=== PATIENT | male | born 1975 | race Caucasian/White ===

== ENCOUNTER 2023-10-10 13:39 | Emergency (ER) | payer OTHER, BC, SELFPAY ==
--- NOTE | ~2023-10-10 | XR_ITS ---
EXAMINATION: XR SHOULDER, LEFT XR ELBOW, LEFT CLINICAL INFORMATION: Pain. COMPARISON: None. TECHNIQUE: AP, Grashey, scapular Y, and axillary views of the left shoulder. AP, oblique, and lateral views of the left elbow. FINDINGS: Left shoulder: No acute fracture or dislocation. No joint space narrowing or marginal osteophytes. No osseous erosion. No abnormal soft tissue calcification. Left elbow: No acute fracture or dislocation. No joint space narrowing or marginal osteophytes. No osseous erosion. No abnormal soft tissue calcification. No significant joint effusion. Posteromedial subcutaneous edema. XR/XR elbow LT min 3V IMPRESSION: LEFT SHOULDER: Unremarkable examination. LEFT ELBOW: No acute osseous abnormality. Posteromedial subcutaneous edema.
--- NOTE | ~2023-10-10 | XR_ITS ---
EXAMINATION: XR SHOULDER, LEFT XR ELBOW, LEFT CLINICAL INFORMATION: Pain. COMPARISON: None. TECHNIQUE: AP, Grashey, scapular Y, and axillary views of the left shoulder. AP, oblique, and lateral views of the left elbow. FINDINGS: Left shoulder: No acute fracture or dislocation. No joint space narrowing or marginal osteophytes. No osseous erosion. No abnormal soft tissue calcification. Left elbow: No acute fracture or dislocation. No joint space narrowing or marginal osteophytes. No osseous erosion. No abnormal soft tissue calcification. No significant joint effusion. Posteromedial subcutaneous edema. XR/XR shoulder LT min 2V IMPRESSION: LEFT SHOULDER: Unremarkable examination. LEFT ELBOW: No acute osseous abnormality. Posteromedial subcutaneous edema.
[2023-10-10 14:17] VITALS: BP 117/88; PULSE 77; RESP 19; TEMP 36.9; O2SAT 96; BMI 32.1
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
== END 2023-10-10 18:12 | disposition home or self-care (01) ==
PROVIDERS: Emergency Provider Emergency Medicine; PCP Family Medicine
DX: S46.012A Strain of muscle(s) and tendon(s) of the rotator cuff of left shoulder, initial encounter (principal); S50.02XA Contusion of left elbow, initial encounter; S50.01XA Contusion of right elbow, initial encounter; M25.512 Pain in left shoulder; V43.52XA Car driver injured in collision with other type car in traffic accident, initial encounter; Y93.9 Activity, unspecified; Y92.410 Unspecified street and highway as the place of occurrence of the external cause; Y99.0 Civilian activity done for income or pay
CPT/HCPCS: 73030; 73080; 99282; 99283